=== PATIENT | female | born 1965 | race Caucasian/White ===

== ENCOUNTER 2022-10-26 17:34 | Emergency (ER) | payer OTHER, SELFPAY ==
[2022-10-26 17:56] VITALS: BP 137/95; PULSE 99; RESP 18; TEMP 36.4; O2SAT 95; BMI 23.3
--- NOTE | 2022-10-26 18:24 | DI.RAD.S_ITS ---
PROCEDURE: XR CHEST 1V INDICATIONS: chest pain TECHNIQUE: One view of the chest was acquired. COMPARISON: None. FINDINGS: Surgical changes and devices: None. Lungs and pleura: An incomplete inspiratory result is noted, causing a crowded appearance to the lung markings. Streaky opacities are seen in both lung bases. On this semiupright portable chest examination, no large pneumothorax or large pleural effusions are seen. Mediastinum: Mediastinal contours appear normal. Heart size is normal. Bones and chest wall: No suspicious bony lesions. Overlying soft tissues appear unremarkable. IMPRESSION: Streaky opacities are seen in both lung bases, likely related to mild infiltrate. Differential diagnosis includes atelectasis in this patient with a limited inspiratory result, however. If clinically appropriate, a short-term followup chest series (with PA and lateral views) performed in deep inspiration is suggested for further evaluation. Dictated by: Emory Dsouza M.D. on 10/26/2022 at 17:58 Approved by: Emory Dsouza M.D. on 10/26/2022 at 17:59
[2022-10-26 18:40] LABS: INR 1.6 (0.9-1.3)
[2022-10-26 18:43] LABS: PTT Partial Thromboplastin Tim 38 SECONDS (26-36)
[2022-10-26 18:49] LABS: Alanine Aminotransferase 21 IU/L (<35); Albumin 3.4 g/dL (3.5-5.0); Albumin Globulin Ratio 0.7 (1.0-2.8); Alkaline Phosphatase 155 U/L (38-126); Aspartate Aminotransferase 35 IU/L (14-36); BUN Creatinine Ratio 18.8 (6-22); Bilirubin Total 5.3 mg/dL (0.2-1.3); Blood Urea Nitrogen 12 mg/dL (7-17); Calcium 8.5 mg/dL (8.4-10.2); Carbon Dioxide 28 mmol/L (22-32); Chloride 95 mmol/L (98-107); Creatine Kinase 30 U/L (30-135); Estimated Glomerular Filt Rate > 60 mL/min (>60); Globulin 5.1 g/dL (1.7-4.1); Glucose 108 mg/dL (70-100); HEMOLYSIS < 15 (0-50); Lipase 153 U/L (23-300); Magnesium 1.6 mg/dL (1.6-2.3); Potassium 3.2 mmol/L (3.4-5.1); Sodium 136 mmol/L (137-145); Total Protein 8.5 g/dL (6.3-8.2)
[2022-10-26 19:00] LABS: Add Manual Diff / Slide Review NO; Basophils Absolute Auto 100 /uL (0-100); Basophils Percent Auto 1.1 % (0-2); Eosinophils Absolute Auto 100 /uL (0-450); Eosinophils Percent Auto 1.1 % (2-4); Hematocrit 37.3 % (36-46); Hemoglobin 13.2 g/dL (12.0-16.0); Lymphocytes Absolute Auto 1200 /uL (1100-4500); Lymphocytes Percent Auto 17.6 % (25-40); Mean Corpuscular HGB Conc 35.4 % (30-36); Mean Corpuscular Volume 101.9 fL (80-100); Monocytes Absolute Auto 700 /uL (0-900); Monocytes Percent Auto 10.9 % (3-14); Neutrophils Absolute Auto 4600 /uL (1500-7000); Neutrophils Percent Auto 69.3 % (50-75); Platelet Count 305 X10^3/uL (150-400); Red Blood Cell Count 3.66 X10^6/uL (4.0-5.2); Red Cell Distribution Width 14.3 % (11.6-14.8); White Blood Cell Count 6.6 X10^3/uL (4.5-11.0)
[2022-10-26 19:01] LABS: Troponin I < 0.012 ng/mL (0.01-0.034)
[2022-10-26 19:05] LABS: Ammonia (NH3) < 9 umol/L (9-30)
--- NOTE | 2022-10-26 19:13 | ED_ITS ---
HPI - Abdominal Pain General Chief Complaint: Abdominal Pain Stated Complaint: states fluid buildup is hurting insides Time Seen by Provider: 10/26/22 18:35 Source: patient Mode of arrival: Ambulatory History of Present Illness HPI narrative: 57-year-old female nonsmoker without significant chronic medical history presents with her in the chief complaint of unexplained weight loss, abdominal pain, distention and yellow eyes. She started having trouble with swelling of her abdomen in July and had been sent by her PUBLICATIONS WRITER to a GI doctor in [place]. She states that she has previously had a paracentesis but never heard any of the answers. She denies any history of IV drug abuse and was a moderate drinker for about 8 years but has not had any alcohol in a few years. Today she is here stating that her abdomen has swollen again over the past few days, she feels itchy, nauseated, weak and shortness of breath and complains that her eyes have become yellow. She denies any fever. She is had no dysuria, frequency or urgency and denies any constipation or diarrhea Related Data Previous Rx's Medication Instructions Recorded amoxicillin 875 mg-potassium 1 tab PO Q12H #20 tabs 10/27/22 clavulanate 125 mg tablet potassium chloride 20 mEq oral 20 meq PO BID 7 days #30 ea 10/27/22 packet (Klor-Con) Allergies Allergy/AdvReac Type Severity Reaction Status Date / Time Sulfa (Sulfonamide Allergy Intermediate Hives Verified 10/26/22 17:56 Antibiotics) Review of Systems Review of Systems Narrative: GENERAL: See HPI HEENT: Denies sinus pain, ear pain, sore throat, difficulty swallowing, dizziness. RESPIRATORY: See HPI CARDIOVASCULAR: Denies chest pain, palpitations, orthopnea, edema, GASTROINTESTINAL: See HPI : Denies dysuria, frequency, incontinence, hematuria, urinary retention. MUSCULOSKELETAL: denies weakness, joint pain, or bony pain SKIN: Denies rash, skin lesions, or other NEUROLOGIC: Denies weakness, headache, numbness, change in speech, confusion, seizures, incoordination. PSYCHIATRIC: No concerning psychosocial issues. 12 point review of systems is negative except for those stated above Patient History Social History Smoking Status: Never smoker Smoking Status: Never smoker Substance Use Type: does not use Exam Narrative Exam Narrative: GENERAL: [57] year old patient appears stated age. Well-developed patient, in moderate distress. HEAD: Atraumatic. Normocephalic. EYES: Pupils equal round and reactive. Extraocular motions intact. Scleral icterus noted ENT: Nose without bleeding, purulent drainage. Throat without erythema, tonsillar hypertrophy or exudate. Airway patent. NECK: Trachea midline. Non tender CARDIOVASCULAR: Regular rate and rhythm without murmurs, gallops, or rubs. RESPIRATORY: Clear to auscultation. Breath sounds equal bilaterally. No wheezes, rales, or rhonchi. GASTROINTESTINAL: Distended with tense ascites. EXTREMITIES: No edema or joint tenderness. BACK: Nontender without deformity or crepitance. No flank tenderness. NEURO: AOx3. SKIN: No rash or erythema of visible areas Initial Vital Signs Initial Vital Signs: Vital Signs Temperature 97.5 F L 10/26/22 17:56 Pulse Rate 99 H 10/26/22 17:56 Respiratory Rate 18 10/26/22 17:56 Blood Pressure 137/95 H 10/26/22 17:56 Pulse Oximetry 95 10/26/22 17:56 Oxygen Delivery Method 10/26/22 17:56 Procedures Paracentesis Time Out Performed: Yes Local Anesthetic: lidocaine 2% Amount of anesthesia used (mL): 4 Fluid: clear Post Procedure Exam: awake, alert, normal BP, normal HR and normal SpO2 Patient Tolerated Procedure: Well Course Orders Ordered: Discontinued Medications Ceftriaxone Sodium 2,000 mg/ (Sodium Chloride) 100 mls @ 200 mls/hr IV NOW ONE Stop: 10/26/22 21:28 Last Infusion: 10/26/22 22:35 Dose: 0 mls/hr Documented By: Admin: 10/26/22 22:05 Dose: 200 mls/hr Documented By: SELENA Consultations Consultation #1: call to [facility] at [place] where she had been a patient in July. We have called multiple times and they have not returned a call, [place] stating that they are not obligated to take call for our hospital. Consultation #2: call to [facility]. No evidence of SBP. We have reviewed history, physical, results of paracentesis, labs and imaging. She recommends adding NEENA, hepatitis panel, iron panel, appropriate for discharge on spironolactone 50 and Lasix 20 with follow-up, however patient already on Spironolactone 100 and Lasix 40 Time: 02:24 Vital Signs Vital signs: Vital Signs - 8 hr 10/26/22 20:55 10/26/22 21:15 Pulse Rate 103 H Respiratory Rate 22 22 Blood Pressure 131/84 Pulse Oximetry 93 93 Oxygen Delivery Method Room Air Room Air MDM - Abdominal Pain Lab Data Result diagrams: 10/26/22 18:10 10/26/22 18:10 Labs: Lab Results 10/26/22 10/26/22 10/26/22 Range/Units 18:10 18:10 18:10 WBC 6.6 (4.5-11.0) X10^3/uL RBC 3.66 L (4.0-5.2) X10^6/uL Hgb 13.2 (12.0-16.0) g/dL Hct 37.3 (36-46) % MCV 101.9 H (80-100) fL MCH 36.0 H (26-34) PG MCHC 35.4 (30-36) % RDW 14.3 (11.6-14.8) % Plt Count 305 (150-400) X10^3/uL Neut % (Auto) 69.3 (50-75) % Lymph % (Auto) 17.6 L (25-40) % [place] % (Auto) 10.9 (3-14) % Eos % (Auto) 1.1 L (2-4) % Baso % (Auto) 1.1 (0-2) % Neut # (Auto) 4600 (2897-1589) /uL Lymph # (Auto) 1200 (2428-5745) /uL [place] # (Auto) 700 (0-900) /uL Eos # (Auto) 100 (0-450) /uL Baso # (Auto) 100 (0-100) /uL PT 18.0 H (10.1-12.7) SECONDS INR 1.6 H (0.9-1.3) APTT 38 H (26-36) SECONDS Sodium 136 L (137-145) mmol/L Potassium 3.2 L (3.4-5.1) mmol/L Chloride 95 L (98-107) mmol/L Carbon Dioxide 28 (22-32) mmol/L BUN 12 (7-17) mg/dL Creatinine 0.64 (0.52-1.04) mg/dL Estimated GFR > 60 (>60) mL/min BUN/Creatinine Ratio 18.8 (6-22) Glucose 108 H (70-100) mg/dL Calcium 8.5 (8.4-10.2) mg/dL Magnesium 1.6 (1.6-2.3) mg/dL Total Bilirubin 5.3 H (0.2-1.3) mg/dL AST 35 (14-36) IU/L ALT 21 (<35) IU/L Alkaline Phosphatase 155 H (38-126) U/L Ammonia (9-30) umol/L Lactate Dehydrogenase (120-246) U/L Total Creatine Kinase 30 (30-135) U/L CK-MB (CK-2) TNP CK-MB (CK-2) Rel Index TNP Troponin I < 0.012 (0.01-0.034) ng/mL Total Protein 8.5 H (6.3-8.2) g/dL Albumin 3.4 L (3.5-5.0) g/dL Globulin 5.1 H (1.7-4.1) g/dL Albumin/Globulin Ratio 0.7 L (1.0-2.8) Lipase 153 (23-300) U/L Fluid Color Fluid Appearance Fluid RBC /uL Fld Tot Nucleated Cell /uL Fluid Polynuclear WBCs % Fluid Mononuclear WBCs % Fluid Eosinophils Fluid Other Cells Body Fluid Clot Ref Test (Refrig) 10/26/22 10/26/22 10/26/22 Range/Units 18:10 18:10 21:05 WBC (4.5-11.0) X10^3/uL RBC (4.0-5.2) X10^6/uL Hgb (12.0-16.0) g/dL Hct (36-46) % MCV (80-100) fL MCH (26-34) PG MCHC (30-36) % RDW (11.6-14.8) % Plt Count (150-400) X10^3/uL Neut % (Auto) (50-75) % Lymph % (Auto) (25-40) % [place] % (Auto) (3-14) % Eos % (Auto) (2-4) % Baso % (Auto) (0-2) % Neut # (Auto) (9885-8495) /uL Lymph # (Auto) (4135-0605) /uL [place] # (Auto) (0-900) /uL Eos # (Auto) (0-450) /uL Baso # (Auto) (0-100) /uL PT (10.1-12.7) SECONDS INR (0.9-1.3) APTT (26-36) SECONDS Sodium (137-145) mmol/L Potassium (3.4-5.1) mmol/L Chloride (98-107) mmol/L Carbon Dioxide (22-32) mmol/L BUN (7-17) mg/dL Creatinine (0.52-1.04) mg/dL Estimated GFR (>60) mL/min BUN/Creatinine Ratio (6-22) Glucose (70-100) mg/dL Calcium (8.4-10.2) mg/dL Magnesium (1.6-2.3) mg/dL Total Bilirubin (0.2-1.3) mg/dL AST (14-36) IU/L ALT (<35) IU/L Alkaline Phosphatase (38-126) U/L Ammonia < 9 L (9-30) umol/L Lactate Dehydrogenase 213 (120-246) U/L Total Creatine Kinase (30-135) U/L CK-MB (CK-2) CK-MB (CK-2) Rel Index Troponin I (0.01-0.034) ng/mL Total Protein (6.3-8.2) g/dL Albumin (3.5-5.0) g/dL Globulin (1.7-4.1) g/dL Albumin/Globulin Ratio (1.0-2.8) Lipase (23-300) U/L Fluid Color Yellow Fluid Appearance Clear Fluid RBC 456 /uL Fld Tot Nucleated Cell 93 /uL Fluid Polynuclear WBCs 40 % Fluid Mononuclear WBCs 60 % Fluid Eosinophils Not Reportable Fluid Other Cells Not Reportable Body Fluid Clot No clots present Ref Test (Refrig) 10/26/22 10/26/22 10/26/22 Range/Units 21:05 21:05 21:05 WBC (4.5-11.0) X10^3/uL RBC (4.0-5.2) X10^6/uL Hgb (12.0-16.0) g/dL Hct (36-46) % MCV (80-100) fL MCH (26-34) PG MCHC (30-36) % RDW (11.6-14.8) % Plt Count (150-400) X10^3/uL Neut % (Auto) (50-75) % Lymph % (Auto) (25-40) % [place] % (Auto) (3-14) % Eos % (Auto) (2-4) % Baso % (Auto) (0-2) % Neut # (Auto) (2464-5558) /uL Lymph # (Auto) (7239-9714) /uL [place] # (Auto) (0-900) /uL Eos # (Auto) (0-450) /uL Baso # (Auto) (0-100) /uL PT (10.1-12.7) SECONDS INR (0.9-1.3) APTT (26-36) SECONDS Sodium (137-145) mmol/L Potassium (3.4-5.1) mmol/L Chloride (98-107) mmol/L Carbon Dioxide (22-32) mmol/L BUN (7-17) mg/dL Creatinine (0.52-1.04) mg/dL Estimated GFR (>60) mL/min BUN/Creatinine Ratio (6-22) Glucose (70-100) mg/dL Calcium (8.4-10.2) mg/dL Magnesium (1.6-2.3) mg/dL Total Bilirubin (0.2-1.3) mg/dL AST (14-36) IU/L ALT (<35) IU/L Alkaline Phosphatase (38-126) U/L Ammonia (9-30) umol/L Lactate Dehydrogenase (120-246) U/L Total Creatine Kinase (30-135) U/L CK-MB (CK-2) CK-MB (CK-2) Rel Index Troponin I (0.01-0.034) ng/mL Total Protein (6.3-8.2) g/dL Albumin (3.5-5.0) g/dL Globulin (1.7-4.1) g/dL Albumin/Globulin Ratio (1.0-2.8) Lipase (23-300) U/L Fluid Color Fluid Appearance Fluid RBC /uL Fld Tot Nucleated Cell /uL Fluid Polynuclear WBCs % Fluid Mononuclear WBCs % Fluid Eosinophils Fluid Other Cells Body Fluid Clot Ref Test (Refrig) Cancelled Cancelled Cancelled 10/26/22 Range/Units 21:05 WBC (4.5-11.0) X10^3/uL RBC (4.0-5.2) X10^6/uL Hgb (12.0-16.0) g/dL Hct (36-46) % MCV (80-100) fL MCH (26-34) PG MCHC (30-36) % RDW (11.6-14.8) % Plt Count (150-400) X10^3/uL Neut % (Auto) (50-75) % Lymph % (Auto) (25-40) % [place] % (Auto) (3-14) % Eos % (Auto) (2-4) % Baso % (Auto) (0-2) % Neut # (Auto) (9221-6680) /uL Lymph # (Auto) (4396-1156) /uL [place] # (Auto) (0-900) /uL Eos # (Auto) (0-450) /uL Baso # (Auto) (0-100) /uL PT (10.1-12.7) SECONDS INR (0.9-1.3) APTT (26-36) SECONDS Sodium (137-145) mmol/L Potassium (3.4-5.1) mmol/L Chloride (98-107) mmol/L Carbon Dioxide (22-32) mmol/L BUN (7-17) mg/dL Creatinine (0.52-1.04) mg/dL Estimated GFR (>60) mL/min BUN/Creatinine Ratio (6-22) Glucose (70-100) mg/dL Calcium (8.4-10.2) mg/dL Magnesium (1.6-2.3) mg/dL Total Bilirubin (0.2-1.3) mg/dL AST (14-36) IU/L ALT (<35) IU/L Alkaline Phosphatase (38-126) U/L Ammonia (9-30) umol/L Lactate Dehydrogenase (120-246) U/L Total Creatine Kinase (30-135) U/L CK-MB (CK-2) CK-MB (CK-2) Rel Index Troponin I (0.01-0.034) ng/mL Total Protein (6.3-8.2) g/dL Albumin (3.5-5.0) g/dL Globulin (1.7-4.1) g/dL Albumin/Globulin Ratio (1.0-2.8) Lipase (23-300) U/L Fluid Color Fluid Appearance Fluid RBC /uL Fld Tot Nucleated Cell /uL Fluid Polynuclear WBCs % Fluid Mononuclear WBCs % Fluid Eosinophils Fluid Other Cells Body Fluid Clot Ref Test (Refrig) Cancelled Imaging Data CT scan - chest: Radiologist's Impression: Close Chest/Abdomen/Pelvis CT (Signed) Deep Mcneil - 10/26/22 Abdomen Ultrasound (Signed) Deep Mcneil - 10/26/22 Chest X-Ray (Signed) Emory Dsouza - 10/26/22 [place] [address] CT Scan Report Signed Patient: Annamaria Galvan MR#: [id number] : 1965 Acct:[id number] Age/Sex: 57 / F Date of Service: 10/26/22 Loc: ED Accession Number: [id number] ?? Procedure: CT chest abd pel w con Ordering Provider: Patrick Sanchez D.O. PROCEDURE:? CT CHEST ABD PEL W CON ? INDICATIONS:? SOB, abdominal pain, weight loss ? TECHNIQUE:? After the administration of intravenous contrast, axial sections acquired from the supraclavicular neck to the pubic symphysis.? Coronal and sagittal reformats were performed.? For radiation dose reduction, the following was used:? automated exposure control, adjustment of mA and/or kV according to patient size.? ? COMPARISON: ? [facility], CT, CT ABDOMEN PELVIS WITH CONTRAST, 08/22/2022, 23:22. ? FINDINGS:? Image quality:? Excellent.? ? CHEST:? Lower Neck: No lymphadenopathy by size criteria. Thyroid:? Visualized thyroid demonstrates no discrete nodules. Axillae: No lymphadenopathy by size criteria. Chest Wall:? Unremarkable.? ? Lungs and Airways:? There are patchy bilateral irregular areas of ground-glass opacity with a peripheral predominance involving all lobes.? Findings are consistent with atypical pneumonia.? There is confluent consolidation redemonstrated in the lung bases along the hemidiaphragms within the lower lobes as well as the right middle lobe and left lingula.? These may reflect areas of atelectasis or pneumonia.? The trachea and central airways are patent. Pleura: No pneumothorax or pleural effusions.? ? Heart: Heart size is normal.? No pericardial effusion. Thoracic Vessels: The aorta and pulmonary arteries are normal in size.? Mediastinum and Concepcion: No lymphadenopathy by size criteria. Esophagus: No wall thickening. No hiatal hernia. ? ABDOMEN: Liver:? A nodular cirrhotic liver is redemonstrated.? No discrete mass identified on the current study.? There is a small cyst again noted within the right hepatic lobe. Gallbladder:? There is mild gallbladder wall thickening which is nonspecific in the context of ascites and liver disease.? No calcified gallstones..? ? Biliary ducts:? No biliary ductal dilatation.? ? Pancreas:? Unremarkable.? ? Spleen:? The spleen is at the upper limits of normal, measuring up to 13.0 cm. Adrenal Glands:? No adrenal nodules.? ? Kidneys and Ureters:? No hydronephrosis.? ? ? Stomach and Bowel:? Stomach, small bowel loops, and colon are normal in caliber and wall thickness.? Peritoneum:? There is a large amount of ascites throughout the abdomen and pelvis.? No definite peritoneal thickening or enhancement.? No free air.? ? Ventral Wall: ? No hernia.? Abdominal Nodes:? No retroperitoneal or mesenteric adenopathy by size criteria.? Vessels:? Aorta and inferior vena cava are normal in size.? There are gastroesophageal and splenic varices.? Numerous additional varices also demonstrated throughout the abdomen.? A recanalized paraumbilical vein is also noted. ? PELVIS: Pelvic Organs:? Unremarkable.? ? Bladder:? Unremarkable.? ? Pelvic Nodes: No enlarged lymph nodes.? Miscellaneous: No inguinal hernias are seen. ? ? ? Bones:? Visualized osseous structures demonstrate no suspicious focal lesions. IMPRESSION:? ? 1.? New bilateral patchy irregular airspace opacities with a peripheral predominance consistent within typical pneumonia. ? 2.? Confluent opacities along the hemidiaphragms bilaterally may represent compressive atelectasis or consolidation/pneumonia. ? 3.? Cirrhosis with findings consistent with portal hypertension including a large amount of ascites. ? Dictated by: Deep Mcneil M.D. on 10/26/2022 at 22:47 ? ? Approved by: Deep Mcneil M.D. on 10/26/2022 at 22:53 ? MDM Narrative Medical decision making narrative: MDM CC: Generalized fatigue, unplanned weight loss, recurrence of ascites and yellowing of her eyes Complicating co-morbidities: Recently diagnosed liver disease Corroborating data: Data collected from: Patient and Medical records reviewed: Unable to obtain outside records, no other visits in our EMR Differential considered: Hepatitis, pancreatitis, undiagnosed cancer or mass versus other Exam documented above, pertinent findings include: Scleral icterus, tense ascites Lab Test results independently reviewed as above. Pertinent findings: No elevation in white blood cell count, normal H&H, platelets 305. INR elevated at 1.6 in the absence of anticoagulation, slight decrease in potassium at 3.2, bilirubin elevated at 5.3, LFTs otherwise unremarkable Independently reviewed EKG as above Imaging studies independently reviewed: Ultrasound to [facility] for paracentesis. Chest, abdomen and pelvis CT with evidence of cirrhosis and portal venous hypertension, however thankfully no evidence of internal bleeding, mass or other obstructive process Consultations: Attempts to discuss with her prior GI doctors at [place] but no return call. Discussed with on-call GI at [facility] Treatments: Early antibiotics, paracentesis with 4500 mL of clear yellow fluid Re-evaluations: Significant improvement after above therapies Discussion: Patient presents with recurrence of ascites in the absence of infectious signs or symptoms. Paracentesis performed and no signs of bacterial peritonitis. Labs and imaging are otherwise unremarkable for acute process, there is some subtle suspicion of pulmonary infiltrate on imaging, patient's shortness of breath potentially due to both ascites and infectious process, she does report some cough now that she thinks of it. Patient placed on antibiotics for completeness sake. Extensive discussion with patient and regarding return precautions and importance of follow-up Disposition: see below, along with detailed discharge instructions that have been reviewed with patient as well as indications for ED re-evaluation and additional outpatient follow up Discharge Plan Departure Patient Disposition: Home Clinical Impression: Abdominal ascites, Pneumonia, Acute hypokalemia Instructions: Ascites, Abdominal Paracentesis Activity Restrictions/Additional Instructions: *You have been diagnosed with [ascites, probable mild bilateral pneumonia and slightly low potassium.] *What to do: *Please continue to take your regular medications as directed. [x ] New medication prescriptions sent to your pharmacy: [[facility] ] [ ] New medication written as a paper prescription [ ] No new medications given *Please follow up with your GI at [facility], I have included their contact information below, please call later today and let them know you were seen in the emergency department and we would like you seen in follow-up *If you do not have a primary care provider please contact the [facility] Resource line at [phone]. They will ask some questions about your medical history and help get you set up with a doctor in the community. *Return to Emergency Department if you should have any new, worsening or concerning symptoms, such as [fever greater than 101 F, shaking chills, worsening pain, persistent vomiting or other bothersome symptoms] Prescriptions: New amoxicillin-pot clavulanate 875-125 mg tablet 1 tab PO Q12H Qty: 20 0RF potassium chloride [Klor-Con] 20 mEq packet 20 meq PO BID 7 Days Qty: 30 0RF Referrals: Navjot Taylor MD [Non-Staff] - Stand Alone Forms: Patient Portal/API
--- NOTE | 2022-10-26 19:38 | DI.US.S_ITS ---
PROCEDURE: US ABDOMEN LIMITED INDICATIONS: ASCITIES; MARSHALL FOR PARACENTESIS TECHNIQUE: Real-time focused scanning was performed of the abdomen, with image documentation. COMPARISON: [facility], CT, CT ABDOMEN PELVIS WITH CONTRAST, 08/22/2022, 23:22. FINDINGS: A large amount of ascites is demonstrated throughout the lower abdomen. A site in the left lower quadrant was marked for paracentesis, with the distance from the skin to center of the fluid collection measuring approximately 5.5 cm. IMPRESSION: 1. Large amount of ascites demonstrated in the lower abdomen. 2. Skin site marked for paracentesis. Dictated by: Deep Mcneil M.D. on 10/26/2022 at 21:12 Approved by: Deep Mcneil M.D. on 10/26/2022 at 21:14
[2022-10-26 20:29] LABS: Lactate Dehydrogenase 213 U/L (120-246)
[2022-10-26 20:55] VITALS: BP 131/84; PULSE 103; RESP 22; O2SAT 93
[2022-10-26 21:15] VITALS: RESP 22; O2SAT 93
--- NOTE | 2022-10-26 21:27 | DI.CT.S_ITS ---
PROCEDURE: CT CHEST ABD PEL W CON INDICATIONS: SOB, abdominal pain, weight loss TECHNIQUE: After the administration of intravenous contrast, axial sections acquired from the supraclavicular neck to the pubic symphysis. Coronal and sagittal reformats were performed. For radiation dose reduction, the following was used: automated exposure control, adjustment of mA and/or kV according to patient size. COMPARISON: [facility], CT, CT ABDOMEN PELVIS WITH CONTRAST, 08/22/2022, 23:22. FINDINGS: Image quality: Excellent. CHEST: Lower Neck: No lymphadenopathy by size criteria. Thyroid: Visualized thyroid demonstrates no discrete nodules. Axillae: No lymphadenopathy by size criteria. Chest Wall: Unremarkable. Lungs and Airways: There are patchy bilateral irregular areas of ground-glass opacity with a peripheral predominance involving all lobes. Findings are consistent with atypical pneumonia. There is confluent consolidation redemonstrated in the lung bases along the hemidiaphragms within the lower lobes as well as the right middle lobe and left lingula. These may reflect areas of atelectasis or pneumonia. The trachea and central airways are patent. Pleura: No pneumothorax or pleural effusions. Heart: Heart size is normal. No pericardial effusion. Thoracic Vessels: The aorta and pulmonary arteries are normal in size. Mediastinum and Concepcion: No lymphadenopathy by size criteria. Esophagus: No wall thickening. No hiatal hernia. ABDOMEN: Liver: A nodular cirrhotic liver is redemonstrated. No discrete mass identified on the current study. There is a small cyst again noted within the right hepatic lobe. Gallbladder: There is mild gallbladder wall thickening which is nonspecific in the context of ascites and liver disease. No calcified gallstones.. Biliary ducts: No biliary ductal dilatation. Pancreas: Unremarkable. Spleen: The spleen is at the upper limits of normal, measuring up to 13.0 cm. Adrenal Glands: No adrenal nodules. Kidneys and Ureters: No hydronephrosis. Stomach and Bowel: Stomach, small bowel loops, and colon are normal in caliber and wall thickness. Peritoneum: There is a large amount of ascites throughout the abdomen and pelvis. No definite peritoneal thickening or enhancement. No free air. Ventral Wall: No hernia. Abdominal Nodes: No retroperitoneal or mesenteric adenopathy by size criteria. Vessels: Aorta and inferior vena cava are normal in size. There are gastroesophageal and splenic varices. Numerous additional varices also demonstrated throughout the abdomen. A recanalized paraumbilical vein is also noted. PELVIS: Pelvic Organs: Unremarkable. Bladder: Unremarkable. Pelvic Nodes: No enlarged lymph nodes. Miscellaneous: No inguinal hernias are seen. Bones: Visualized osseous structures demonstrate no suspicious focal lesions. IMPRESSION: 1. New bilateral patchy irregular airspace opacities with a peripheral predominance consistent within typical pneumonia. 2. Confluent opacities along the hemidiaphragms bilaterally may represent compressive atelectasis or consolidation/pneumonia. 3. Cirrhosis with findings consistent with portal hypertension including a large amount of ascites. Dictated by: Deep Mcneil M.D. on 10/26/2022 at 22:47 Approved by: Deep Mcneil M.D. on 10/26/2022 at 22:53
[2022-10-26 21:30] VITALS: BP 134/75; PULSE 102; O2SAT 96
[2022-10-26 21:35] LABS: Body Fluid Tot Nucleated Cells 93 /uL
[2022-10-26 21:38] LABS: Body Fluid Red Blood Cells 456 /uL
[2022-10-26 21:39] LABS: Body Fluid Appearance CLEAR; Body Fluid Clotted? NO CLOTS PRESENT; Body Fluid Color YELLOW
[2022-10-26] MEDS: cefTRIAXone 2,000 MG in SODIUM CHLORIDE 0.9% 100 ML 200 MG IV (22:05)
[2022-10-26 22:45] LABS: Mononuclear WBC Body Fluid 60 %; Polynuclear WBC Body Fluid 40 %
[2022-10-27 03:33] VITALS: PULSE 99; O2SAT 91
[2022-10-27 03:34] VITALS: BP 111/72; PULSE 94; O2SAT 92
[2022-10-27 03:37] VITALS: BP 111/72; PULSE 92; RESP 20; O2SAT 92
== END 2022-10-27 03:54 | disposition home or self-care (01) ==
PROVIDERS: Emergency Provider Emergency Medicine
DX: R18.8 Other ascites (principal); J18.9 Pneumonia, unspecified organism; E87.6 Hypokalemia
CPT/HCPCS: 36415; 49082; 71045; 71260; 74177; 76705; 80053; 82140; 82550; 83615; 83690; 83735; 84484; 85025; 85610; 85730; 87070; 87075; 87205; 89051; 93005; 93010; 96365; 99284; J0696; Q9967

== ENCOUNTER → 2022-10-30 13:22 | Outpatient (CLI) | payer OTHER, SELFPAY ==
--- NOTE | 2022-10-30 | DI.US.S_ITS ---
PROCEDURE: US PELVIC COMPLETE INDICATIONS: ABNORMAL WEIGHT LOSS, FATIGUE, ASCITES TECHNIQUE: Real-time scanning was performed of the pelvic organs, with image documentation. Additional endovaginal scanning was necessary due to incomplete visualization of the adnexal and endometrial structures by transabdominal scanning. COMPARISON: None. FINDINGS: Uterus: Uterus is anteverted and normal in size at 7.1 x 3.6 x 5 4 cm. The myometrium is homogeneous. The endometrium measures 12.4 mm combined thickness. Left anterior intramural fibroid measures 1.9 x 1.0 x 1.9 Ovaries: Neither ovaries identified Other: Large amount of free fluid in the pelvis IMPRESSION: Pelvic ascites. Nonvisualized ovaries Approved by: Jamarcus Cooper M.D. on 10/30/2022 at 17:58
== END ==
PROVIDERS: PCP Naturopath; Referring Provider Naturopath; Visit Provider Naturopath
DX: R18.8 Other ascites (principal); R97.1 Elevated cancer antigen 125 [CA 125]; Z12.73 Encounter for screening for malignant neoplasm of ovary; R63.4 Abnormal weight loss; R53.83 Other fatigue; N81.4 Uterovaginal prolapse, unspecified
CPT/HCPCS: 76830; 76856